=== PATIENT | male | born 2000 | race Caucasian/White ===

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

== ENCOUNTER 2024-04-14 08:44 | Outpatient (CLI) | payer OTHER | END 2024-04-14 08:45 | disposition home or self-care (01) | LOC: BICULT 08:44 | PROVIDERS: ATTEND Internal Medicine | DX: R16.1 Splenomegaly, not elsewhere classified (principal); R74.01 Elevation of levels of liver transaminase levels; K76.0 Fatty (change of) liver, not elsewhere classified | CPT/HCPCS: 76700 ==